=== PATIENT | male | born 1990 | race Caucasian/White ===

== ENCOUNTER 2016-12-21 10:44 | Emergency (ER) | payer SELFPAY ==
--- NOTE | 2016-12-21 11:19 | ER Document Report ---
ED Medical Screen (RME) - General Chief Complaint: Abscess Stated Complaint: PAIN/SWELLING OF LIP AND FACE Time seen by provider: 11:18 Mode of Arrival: Ambulatory Information source: Patient Notes: 26-year-old male with a abscess in the right upper lip that he squeezed pus out of 2 days ago. Has the swelling has increased since then. No fever. Pain goes up into his right cheek and into his mandible. The abscess and swelling seems to be localized. No history of MRSA TRAVEL OUTSIDE OF THE [place] IN LAST 30 DAYS: No - Related Data Allergies/Adverse Reactions: No Known Allergies Allergy (Verified 12/21/16 10:59) Past Medical History - Social History Chew tobacco use (# tins/day): Yes Frequency of alcohol use: Rare Drug Abuse: None Renal/ Medical History: Denies: Hx Peritoneal Dialysis
[2016-12-21] MEDS ORDERED: CLINDAMYCIN HCL 150 MG CAPSULE PO ONE (12:52)
[2016-12-21] MEDS ORDERED: HYDROCODONE/ACETAMINOPHEN 5-325 MG 6 TAB/DSPK PO PRN (12:54)
--- NOTE | 2016-12-21 12:58 | ER Document Report ---
ED Skin Rash/Insect Bite/Abscs - General Chief Complaint: Abscess Stated Complaint: PAIN/SWELLING OF LIP AND FACE Time seen by provider: 12:53 Mode of Arrival: Ambulatory Information source: Patient Notes: 26-year-old male presents to ED for abscess to the right upper lip states his head temples and it pops 2 days ago and yesterday the swelling was a little larger today is much larger. TRAVEL OUTSIDE OF THE [place] IN LAST 30 DAYS: No - HPI Patient complains to provider of: Skin rash/lesion, Tender/swollen area Onset: Other - 2 days Onset/Duration: Gradual Quality of pain: Sharp, Throbbing Severity: Moderate Pain Level: 4 Skin Character: Abscess Quality of rash: Painful Identify cause: Yes - states he popped the pimple and then it became large and inflamed on his li Exacerbated by: Denies - Palpation Relieved by: Denies Similar symptoms previously: No Recently seen / treated by doctor: No - Related Data Allergies/Adverse Reactions: No Known Allergies Allergy (Verified 12/21/16 10:59) Past Medical History - General Information source: Patient - Social History Smoking Status: Current Every Day Smoker Cigarette use (# per day): Yes - in cigarette a day Chew tobacco use (# tins/day): Yes Smoking Education Provided: Yes - less than 1 minute Frequency of alcohol use: Occasional Drug Abuse: None Occupation: goes to school Lives with: Parents Family History: Arthritis, CVA. denies: CAD, COPD, DM, Hyperlipidemia, Hypertension, Malignancy, Thyroid Disfunction Patient has suicidal ideation: No Patient has homicidal ideation: No - Past Medical History Cardiac Medical History: Reports: None Pulmonary Medical History: Reports: None EENT Medical History: Reports: None Neurological Medical History: Reports: None Endocrine Medical History: Reports: None Renal/ Medical History: Reports: None Malignancy Medical History: Reports None Musculoskeltal Medical History: Reports Hx Musculoskeletal Trauma - Shoulder rotator cuff injury, Reports Other Skin Medical History: Reports None Psychiatric Medical History: Reports: None Traumatic Medical History: Reports: None Infectious Medical History: Reports: None Past Surgical History: Reports: Hx Appendectomy, Hx Orthopedic Surgery - Rotator cuff - Immunizations History of Influenza Vaccine for 08/2016 - 01/2017 Season: No Review of Systems - Review of Systems Constitutional: No symptoms reported EENT: Other - Abscess to the right upper lip Cardiovascular: No symptoms reported Respiratory: No symptoms reported Gastrointestinal: No symptoms reported Genitourinary: No symptoms reported Male Genitourinary: No symptoms reported Musculoskeletal: No symptoms reported Skin: No symptoms reported Hematologic/Lymphatic: No symptoms reported Neurological/Psychological: No symptoms reported -: Yes All other systems reviewed and negative Physical Exam - Vital signs Vitals: Temp Pulse Resp BP Pulse Ox 99.7 F 85 18 148/93 H 100 12/21/16 10:58 12/21/16 10:58 12/21/16 10:58 12/21/16 10:58 12/21/16 10:58 Interpretation: Normal - General General appearance: Appears well, Alert - HEENT Head: Normocephalic, Atraumatic Eyes: Normal Pupils: PERRL Ears: Normal External canal: Normal Tympanic membrane: Normal Sinus: Normal Nasal: Normal Mouth/Lips: Other - Abscess to the right upper lip. Patient popped the pimple just above his lip Pharynx: Normal Neck: Normal - Respiratory Respiratory status: No respiratory distress Chest status: Nontender Breath sounds: Normal Chest palpation: Normal - Cardiovascular Rhythm: Regular Heart sounds: Normal auscultation Murmur: No - Abdominal Inspection: Normal Distension: No distension Bowel sounds: Normal Tenderness: Nontender Organomegaly: No organomegaly - Back Back: Normal, Nontender - Extremities General upper extremity: Normal inspection, Nontender, Normal color, Normal ROM , Normal temperature General lower extremity: Normal inspection, Nontender, Normal color, Normal ROM , Normal temperature, Normal weight bearing. No: Joel's sign - Neurological Neuro grossly intact: Yes Cognition: Normal Orientation: AAOx4 [place] Coma Scale Eye Opening: Spontaneous Adina Coma Scale Verbal: Oriented [place] Coma Scale Motor: Obeys Commands Adina Coma Scale Total: 15 Speech: Normal Motor strength normal: LUE, RUE, LLE, RLE Sensory: Normal - Psychological Associated symptoms: Normal affect, Normal mood - Skin Skin Temperature: Warm Skin Moisture: Dry Skin Color: Normal Course - Vital Signs Vital signs: Temp Pulse Resp BP Pulse Ox 99.7 F 87 18 156/92 H 98 12/21/16 10:58 12/21/16 13:21 12/21/16 13:21 12/21/16 13:21 12/21/16 13:21 Procedures - Incision and Drainage Right Upper lip Type: Simple Anesthetic type: 1% Lidocaine mL's of anesthetic: 3 Blade size: Other Incision Method: Incision made with needle Amount/type of drainage: no drainage patient started on antibiotics Discharge - Discharge Clinical Impression: abscess right upper lip Condition: Stable Disposition: HOME, SELF-CARE Instructions: Family Physicians / Practices Additional Instructions: ABSCESS: You have an abscess (boil). This a pus-forming infection, usually due to staph. Some boils may be left to drain on their own, but most require lancing. From the time the tender lump first appears, it may be three or four days before the abscess is ready to justin. Local heat and rest help at this stage of treatment. An antibiotic may prevent spread of the infection. Once the abscess is opened, packing may be placed into it. This is done so pus is not sealed inside by premature closure of the cavity. The packing will be removed at your follow-up visit or you may be advised to remove it yourself at home. Sometimes this packing must be replaced a few times during healing. The wound will heal with surprisingly little scar. Depending on the size and location of an abscess, healing can take one to four weeks. You may shower and wash the area around the incision site two or three times a day. Antibiotics may be prescribed, but are usually not necessary after an abscess has been drained. If you develop fever, chills, worsening pain, or increasing swelling in the area, call the doctor or return immediately. POST INCISION AND DRAINAGE: You have had an incision made to allow drainage of an abscess. The incision must remain open so that pus and debris can drain from the wound. If the abscess cavity is large, packing is placed. This keeps the tissues from collapsing and trapping pus inside, while the body shrinks the cavity. The packing may need to be replaced every day or two. The physician will instruct you on the packing. Keep a bulky dressing over the area. Replace it if it becomes saturated with blood or pus. Do not disturb the packing (if present). You may shower and cleanse the area with gentle soap and warm water two or three times a day. Local warmth may be soothing, and may promote faster healing. Return if you develop high fever or chills, or if you note spreading redness, increasing swelling, or increasing tenderness. ORAL NARCOTIC MEDICATION: You have been given a prescription for pain control. This medication is a narcotic. It's best taken with food, as nausea can result if taken on an empty stomach. Don't operate machinery or drive within six hours of taking this medication. Do not combine this medicine with alcohol, or with any medication which can cause sedation (such as cold tablets or sleeping pills) unless you get permission from the physician. Narcotics tend to cause constipation. If possible, drink plenty of fluids and eat a diet high in fiber and fruits. Clindamycin You have been given a prescription for the antibiotic clindamycin. It is often prescribed for infections in the mouth, such as dental infections or abscesses, and for skin infections due to MRSA. It's important that you take all the medication, unless instructed otherwise by your physician. Failure to complete the entire course can result in relapse of your condition. Common side effects of antibiotics include nausea, intestinal cramping, or diarrhea. Women may develop vaginal yeast infections, and babies can get yeast (thrush) in the mouth following the use of antibiotics. Contact your physician if you develop significant side effects from this medication. Allergy to this antibiotic can result in hives, wheezing, faintness, or itching. If symptoms of allergy occur, stop the medication and call the doctor. FOLLOW-UP CARE: Most simple abscesses will not require a follow up visit. If you had packing placed in the abscess, remove it as instructed by the physician. If you have been referred to a physician for follow-up care, call the physicians office for an appointment as you were instructed or within the next two days. If you experience worsening or a significant change in your symptoms, return to the Emergency Department at any time for re-evaluation. Prescriptions: Hydrocodone/Acetaminophen [Edwards 5-325 mg Tablet] 1 tab PO Q6HP PRN #10 tablet PRN Reason: Clindamycin HCl [Cleocin 300 mg Capsule] 300 mg PO Q6 #28 capsule Forms: Elevated Blood Pressure, Smoking Cessation Education, Return to Work
[2016-12-21 13:23] VITALS: BP 156/92
== END 2016-12-21 13:21 | disposition home or self-care (01) ==
LOC: ER 10:44
PROC: 0H91XZZ Drainage of Face Skin, External Approach (ICD-10-PCS; principal; 2016-12-21)
DX: K13.0 Diseases of lips (principal); F17.210 Nicotine dependence, cigarettes, uncomplicated
CPT/HCPCS: 99283

== ENCOUNTER 2019-05-13 11:51 | Observation (INO) | payer BC ==
[2019-05-13] MEDS ORDERED: CLINDAMYCIN 600 MG/D5W RTU 600 MG/50 ML RTUPB IV SCH (14:00)
--- NOTE | 2019-05-13 14:51 | RADIOLOGY REPORT (SQ) ---
EXAM DESCRIPTION: FOOT LEFT COMPLETE COMPLETED DATE/TIME: 05/13/2019 2:37 pm REASON FOR STUDY: pain, swelling, infection COMPARISON: None. NUMBER OF VIEWS: Three views. TECHNIQUE: AP, lateral and oblique radiographic images acquired of the left foot. LIMITATIONS: None. FINDINGS: MINERALIZATION: Normal. BONES: No acute fracture or dislocation. No worrisome bone lesions. JOINTS: No effusions. SOFT TISSUES: Diffuse soft tissue swelling of the forefoot. OTHER: No other significant finding. IMPRESSION: No fracture dislocation of the left foot. Joint spaces are well preserved. No radiogra phic evidence of erosion or sclerosis to suggest osteomyelitis. Diffuse soft tissue swelling of the forefoot. Consider MRI to more sensitively evaluate for marrow edema and osteomyelitis if suspected. TECHNICAL DOCUMENTATION: JOB ID: [id number] [employer]- All Rights Reserved Reading location - IP/workstation name: [email or web address]
[2019-05-13 15:07] LABS: ABSOLUTE MONOCYTES (AUTO) 1.3 10^3/uL (0.1-1.4); RED BLOOD COUNT 5.44 10^6/uL (4.35-5.55); SEGMENTED NEUTROPHILS % (AUTO) 69.4 % (42-78); TOTAL CELLS COUNTED % (AUTO) 100 %
[2019-05-13 15:16] LABS: ABSOLUTE EOSINOPHILS # (AUTO) 0.4 10^3/uL (0.0-0.6); ABSOLUTE LYMPHOCYTES (AUTO) 1.9 10^3/uL (0.5-4.7); ABSOLUTE NEUT (AUTO) 8.3 10^3/uL (1.7-8.2); BASOPHILS % (AUTO) 0.3 % (0-2); HEMATOCRIT 47.1 % (37.9-51.0); HEMOGLOBIN 16.1 g/dL (13.5-17.0); MEAN CORPUSCULAR HEMOGLOBIN 29.6 pg (27.0-33.4); MEAN CORPUSCULAR HGB CONC 34.1 g/dL (32.0-36.0); MEAN CORPUSCULAR VOLUME 87 fl (80-97); MONOCYTES % (AUTO) 11.3 % (3-13); PLATELET COUNT 293 10^3/uL (150-450); RED CELL DISTRIBUTION WIDTH 13.1 % (11.5-14.0); WHITE BLOOD COUNT 11.9 10^3/uL (4.0-10.5)
[2019-05-13 15:30] LABS: ALANINE AMINOTRANSFERASE 107 U/L (21-72); ALBUMIN 4.8 g/dL (3.5-5.0); ALKALINE PHOSPHATASE 65 U/L (38-126); ANION GAP 11 (5-19); ASPARTATE AMINO TRANSFERASE 59 U/L (17-59); BILIRUBIN,DIRECT 0.3 mg/dL (0.0-0.4); BILIRUBIN,TOTAL 1.9 mg/dL (0.2-1.3); BLOOD UREA NITROGEN 10 mg/dL (7-20); C-REACTIVE PROTEIN 38.8 mg/L (<10.0); CALCIUM 9.2 mg/dL (8.4-10.2); CARBON DIOXIDE 30 mmol/L (22-30); CHLORIDE 99 mmol/L (98-107); GLUCOSE 94 mg/dL (75-110); POTASSIUM 4.1 mmol/L (3.6-5.0); SODIUM 140.1 mmol/L (137-145)
[2019-05-13 15:51] LABS: ERYTHROCYTE SEDIMENTATION RATE 10 mm/hr (0-15)
--- NOTE | 2019-05-13 15:56 | ER Document Report ---
ED Medical Screen (RME) - General Chief Complaint: Leg Swelling Stated Complaint: POSSIBLE INSECT BITE Time Seen by Provider: 05/13/19 13:04 Mode of Arrival: Ambulatory Information source: Patient Notes: This is a 29-year-old male with no significant past medical history here for left foot and lower leg swelling x2 days. He states he got bit by some insects he is not sure what it may have been and the foot has swollen up dramatically over the last 2 days and he has had some redness, pain and very minimal itching. Is able to walk. Denies any numbness or tingling. He is PERC negative. He has not taken anything for his symptoms. No history of diabetes or asthma. No recent antibiotics or steroids. He has not put anything on the area. Up-to-date on vaccinations. Denies any drug use. No calf pain or swelling. No other lesions. He has had low-grade fevers. Some drainage. No other complaints at this time. TRAVEL OUTSIDE OF THE [place] IN LAST 30 DAYS: No - HPI Onset: Yesterday Onset/Duration: Gradual Quality of pain: Achy, Throbbing Severity: Mild - Related Data Allergies/Adverse Reactions: No Known Allergies Allergy (Verified 05/13/19 11:52) Past Medical History - Social History Frequency of alcohol use: twice monthly Drug Abuse: None Renal/ Medical History: Denies: Hx Peritoneal Dialysis Musculoskeltal Medical History: Reports Hx Musculoskeletal Trauma - Shoulder rotator cuff injury Past Surgical History: Reports: Hx Appendectomy, Hx Orthopedic Surgery - Rotator cuff Review of Systems - Review of Systems Constitutional: Chills, Fever Cardiovascular: Edema. denies: Chest pain, Palpitations, Dyspnea, Syncope, Dizziness Respiratory: denies: Cough, Hemoptysis, Short of breath Gastrointestinal: denies: Vomiting Musculoskeletal: Joint pain, Muscle pain, Deformity, Leg swelling, Ankle swelling Skin: Lesions, Rash Hematologic/Lymphatic: denies: Blood clots Neurological/Psychological: Gait changes. denies: Numbness, Tingling Physical Exam - Vital signs Vitals: Temp Pulse Resp BP Pulse Ox 99.3 F 97 20 126/84 H 98 05/13/19 12:08 05/13/19 12:08 05/13/19 12:08 05/13/19 12:08 05/13/19 12:08 - Notes Notes: >>>> PHYSICAL_EXAM: GENERAL_APPEARANCE: well_nourished, alert, cooperative, mild obvious discomfort. Pleasant young white male, smiling, easily sitting up, no sign of pain or respiratory distress, speaking in full sentences. VITALS: reviewed, see vital signs table. HEAD: normocephalic, atraumatic, no raccoon eyes, no fox signs EYES: EOMI, conjunctiva_clear. PERRL MOUTH: no_lacerations inside_mouth. NECK: no_swelling\tenderness on the neck. no midline bony tenderness. no step offs or deformities. full rom. full strength HEART: normal_rate, normal_rhythm, LUNGS: no_wheezing, CTAB, ABDOMEN: normal_BS, soft, no_abd_tenderness, BACK: no midline bony tenderness. no step offs or deformities EXTREMITIES: strength 5/5 in all_extremities, good pulses all_extremities, no_abrasions\lacerations in the extremities, no_swelling\tenderness in the extremities other than over the left foot where there is a 1-2+ pitting edema, the foot has a most edema and there is some edema extending up midshaft tibia. He has a negative Homans sign. There is some erythema on the medial aspect of posterior foot and a few 0.5 cm ulcerated appearing bug bites with some clear yellowish drainage the worst one being in anterior distal tibia. Area is tender to palpate. Does not appear he has compartment syndrome. No other swelling, redness, streaking, or tenderness to palpation of the leg. No other signs of trauma. No shortening or rotation of the limbs. No other rash.. full rom. Slight antalgic gait secondary to pain. SKIN: warm, dry, good_color. Rash is described NEURO: motor_intact, sensory_intact. GLASCOW_COMA_SCORE: (adult) - eyes_open_spontaneously_4, verbal_converses_and_oriented_5, motor_obeys_commands_6, glasgow_coma_total_15, MENTAL_STATUS: speech_clear, oriented_X_3, responds_appropriately to questions. Course - Re-evaluation Re-evalutation: 05/13/19 15:54 On reexam, pt improved with tx listed. feels much better and would like to go home. vss. well appearing. tolerating po. Patient initially evaluated me and signed out to ED attending, Dr. Urbano for final dispo and interpretation of labs and imaging. Please refer to his note for further details of the visit. Labs- Entire Visit 05/13/19 05/13/19 05/13/19 14:48 14:48 14:48 WBC 11.9 H RBC 5.44 Hgb 16.1 Hct 47.1 MCV 87 MCH 29.6 MCHC 34.1 RDW 13.1 Plt Count 293 Seg Neutrophils % 69.4 Lymphocytes % 16.0 Monocytes % 11.3 Eosinophils % 3.0 Basophils % 0.3 Absolute Neutrophils 8.3 H Absolute Lymphocytes 1.9 Absolute Monocytes 1.3 Absolute Eosinophils 0.4 Absolute Basophils 0.0 ESR 10 Sodium 140.1 Potassium 4.1 Chloride 99 Carbon Dioxide 30 Anion Gap 11 BUN 10 Creatinine 0.84 Est GFR ( Amer) > 60 Est GFR (Non-Af Amer) > 60 Glucose 94 Lactic Acid 0.9 Calcium 9.2 Total Bilirubin 1.9 H Direct Bilirubin 0.3 Neonat Total Bilirubin Not Reportable Neonat Direct Bilirubin Not Reportable Neonat Indirect Bili Not Reportable AST 59 ALT 107 H Alkaline Phosphatase 65 C-Reactive Protein 38.8 H Total Protein 8.0 Albumin 4.8 Foot X-Ray 05/13/19 13:44 IMPRESSION: No fracture dislocation of the left foot. Joint spaces are well preserved. No radiographic evidence of erosion or sclerosis to suggest osteomyelitis. Diffuse soft tissue swelling of the forefoot. Consider MRI to more sensitively evaluate for marrow edema and osteomyelitis if suspected. Category Date Time Status Saline Lock (ED) NOW Care 05/13/19 13:43 Active FOOT LEFT COMPLETE [RAD] Stat Exams 05/13/19 13:44 Completed BLOOD CULTURE [MC] Stat Lab 05/13/19 15:35 Received CBC WITH DIFF [HEME] Stat Lab 05/13/19 14:48 Completed CMP [COMPREHENSIVE METABOLIC PANEL] [CHEM] Stat Lab 05/13/19 14:48 Completed CRP [C-REACTIVE PROTEIN] [CHEM] Stat Lab 05/13/19 14:48 Completed LACTIC ACID SEPSIS [CHEM] Stat Lab 05/13/19 14:48 Completed Sed Rate [ERYTHROCYTE SEDIMENTATION RATE] [HEME] Stat Lab 05/13/19 14:48 Completed WOUND CULTURE + GRAM STAIN [MC] Stat Lab 05/13/19 13:44 Uncollected Clindamycin 600 mg/D5w RTU [Cleocin RTU 600 mg/D5w 50 Med 05/13/19 14:00 Active ml Premix] 600 mg in 50 ml IV Q8 ++I independently evaluated this patient along with Dr. Sanchez who also saw and evaluated this pt++Documentation achieved through voice recording which may despite best efforts include some typographical errors++ - Vital Signs Vital signs: Temp Pulse Resp BP Pulse Ox 99.3 F 97 20 126/84 H 98 05/13/19 12:08 05/13/19 12:08 05/13/19 12:08 05/13/19 12:08 05/13/19 12:08 - Laboratory Result Diagrams: 05/13/19 14:48 05/13/19 14:48 Laboratory results interpreted by me: 05/13/19 05/13/19 14:48 14:48 WBC 11.9 H Absolute Neutrophils 8.3 H Total Bilirubin 1.9 H ALT 107 H C-Reactive Protein 38.8 H - Diagnostic Test Radiology reviewed: Image reviewed, Reports reviewed Radiology results interpreted by me: 05/13/19 15:56 Foot X-Ray 05/13/19 13:44 IMPRESSION: No fracture dislocation of the left foot. Joint spaces are well preserved. No radiographic evidence of erosion or sclerosis to suggest osteomyelitis. Diffuse soft tissue swelling of the forefoot. Consider MRI to m ore sensitively evaluate for marrow edema and osteomyelitis if suspected. Doctor's Discharge - Discharge Clinical Impression: Edema of left foot Condition: Stable
--- NOTE | 2019-05-13 16:19 | ER Document Report ---
ED Extremity Problem, Lower - General Chief Complaint: Leg Swelling Stated Complaint: POSSIBLE INSECT BITE Time Seen by Provider: 05/13/19 13:04 Mode of Arrival: Ambulatory Information source: Patient, Relative TRAVEL OUTSIDE OF THE [place] IN LAST 30 DAYS: No - HPI Patient complains to provider of: Swelling Location: Foot - pt states he was bitten by several insects while in the yard 2- 3 days ago -- yesterday had some swelling of L foot and today swelling has progressed proximally with increased redness., Leg - Related Data Allergies/Adverse Reactions: No Known Allergies Allergy (Verified 05/13/19 11:52) Past Medical History - General Information source: Patient, Relative - Social History Smoking Status: Former Smoker Frequency of alcohol use: twice monthly Drug Abuse: None Family History: Arthritis, CVA. denies: CAD, COPD, DM, Hyperlipidemia, Hypertension, Malignancy, Thyroid Disfunction Patient has suicidal ideation: No Patient has homicidal ideation: No Renal/ Medical History: Denies: Hx Peritoneal Dialysis Musculoskeletal Medical History: Reports Hx Musculoskeletal Trauma - Shoulder rotator cuff injury Past Surgical History: Reports: Hx Appendectomy, Hx Orthopedic Surgery - Rotator cuff Review of Systems - Review of Systems Constitutional: No symptoms reported EENT: No symptoms reported Cardiovascular: No symptoms reported Respiratory: No symptoms reported Gastrointestinal: No symptoms reported Musculoskeletal: See HPI, Joint pain, Leg swelling, Ankle swelling Skin: See HPI Neurological/Psychological: No symptoms reported -: Yes All other systems reviewed and negative Physical Exam - Vital signs Vitals: Temp Pulse Resp BP Pulse Ox 99.3 F 97 20 126/84 H 98 05/13/19 12:08 05/13/19 12:08 05/13/19 12:08 05/13/19 12:08 05/13/19 12:08 - General General appearance: Appears well In distress: None - HEENT Mucous membranes: Normal Pharynx: Normal Neck: Normal - Respiratory Respiratory status: No respiratory distress Breath sounds: Normal - Cardiovascular Rhythm: Regular Heart sounds: Normal auscultation Murmur: No - Back Back: Normal - Extremities General upper extremity: Normal inspection General lower extremity: Tender - there is TTP of the L foot and lower extremity with moderate STS. there are scattered excoriations consistent with insect bites on the dorsum of the foot. There is diffuse erythema of foot and distal lower extremity. There is FROM of leg and it is N/V intact Course - Re-evaluation Re-evalutation: 05/13/19 16:19 I have re-evaluated this pt. and feel the safest way to proceed is to admit him for IV abx and obs. I will call hospitalist for admission - Vital Signs Vital signs: Temp Pulse Resp BP Pulse Ox 99.3 F 97 20 126/84 H 98 05/13/19 12:08 05/13/19 12:08 05/13/19 12:08 05/13/19 12:08 05/13/19 12:08 - Laboratory Result Diagrams: 05/13/19 14:48 05/13/19 14:48 Laboratory results interpreted by me: 05/13/19 05/13/19 14:48 14:48 WBC 11.9 H Absolute Neutrophils 8.3 H Total Bilirubin 1.9 H ALT 107 H C-Reactive Protein 38.8 H - Diagnostic Test Radiology reviewed: Reports reviewed - no evidence of osteo Critical Care Note - Critical Care Note Total time excluding time spent on procedures (mins): 30 Discharge - Discharge Clinical Impression: Edema of left foot Condition: Stable Disposition: ADMITTED OBSERVATION Admitting Provider: Amina (Hospitalist) Unit Admitted: Medical Floor
[2019-05-13] MEDS ORDERED: ACETAMINOPHEN 325 MG TABLET PO PRN (17:08)
[2019-05-13] MEDS ORDERED: VANCOMYCIN HCL 0 MG in DEXTROSE 5%-WATER 250 ML IV NR (17:15)
--- NOTE | 2019-05-13 17:16 | PDOC H&P ---
History of Present Illness Admission Date/PCP: 05/13/19 16:48 Patient complains of: left foot/leg pain History of Present Illness: RIGOBERTO BISHOP is a 29 year old male with no significant PMH who presented with left foot and leg pain and swelling. Patient says that he was working on the backyard 2 days ago and was bitten by insects. He said he was scratching his left foot a lot because of the pruritus and had some superficial wounds from the scratching. He later developed redness on the left foot and later progressed to his left leg. He complained of some chills at home but denies fever. On encounter, there is left foot erythema and swelling with the erythema and swelling extending up to the left leg. Past Surgical History Past Surgical History: Reports: Appendectomy, Orthopedic Surgery - Rotator cuff Social History Smoking Status: Former Smoker Family History Family History: Arthritis, CVA. denies: CAD, COPD, DM, Hyperlipidemia, Hypertension, Malignancy, Thyroid Disfunction Parental Family History Reviewed: Yes - no premature CAD Children Family History Reviewed: No Sibling(s) Family History Reviewed.: No Medication/Allergy Home Medications: Dextroamphetamine/Amphetamine [Adderall XR 20 mg Capsule] 20 mg PO DAILY 05/13/19 Clindamycin HCl [Cleocin 300 mg Capsule] 300 mg PO Q6H 5 Days #20 capsule Allergies/Adverse Reactions: No Known Allergies Allergy (Verified 05/13/19 11:52) Review of Systems All systems: reviewed and no additional remarkable complaints except as stated - as mentioned in HPI Physical Exam Vital Signs: Temp Pulse Resp BP Pulse Ox 99.3 F 97 20 126/84 H 98 05/13/19 12:08 05/13/19 12:08 05/13/19 12:08 05/13/19 12:08 05/13/19 12:08 Intake & Output 05/12/19 05/13/19 05/14/19 06:59 06:59 06:59 Weight 214 lb 15.211 oz General appearance: PRESENT: no acute distress, well-developed, well-nourished Head exam: PRESENT: atraumatic, normocephalic Eye exam: PRESENT: conjunctiva pink, EOMI, PERRLA. ABSENT: scleral icterus Ear exam: PRESENT: normal external ear exam Mouth exam: PRESENT: moist, tongue midline Neck exam: ABSENT: carotid bruit, JVD, lymphadenopathy, thyromegaly Respiratory exam: PRESENT: clear to auscultation [place]aka. ABSENT: rales, rhonchi, wheezes Cardiovascular exam: PRESENT: RRR. ABSENT: diastolic murmur, rubs, systolic murmur Pulses: PRESENT: normal dorsalis pedis pul GI/Abdominal exam: PRESENT: normal bowel sounds, soft. ABSENT: distended, guarding, mass, organolmegaly, rebound, tenderness Rectal exam: PRESENT: deferred Extremities exam: PRESENT: tenderness - note of erythema and tenderness on the left foot extending up to the left leg Neurological exam: PRESENT: alert, awake, oriented to person, oriented to place, oriented to time, oriented to situation, CN II-XII grossly intact. ABSENT: motor sensory deficit Results Laboratory Results: 05/13/19 14:48 05/13/19 14:48 05/13/19 05/13/19 05/13/19 14:48 14:48 14:48 WBC 11.9 H RBC 5.44 Hgb 16.1 Hct 47.1 MCV 87 MCH 29.6 MCHC 34.1 RDW 13.1 Plt Count 293 Seg Neutrophils % 69.4 Lymphocytes % 16.0 Monocytes % 11.3 Eosinophils % 3.0 Basophils % 0.3 Absolute Neutrophils 8.3 H Absolute Lymphocytes 1.9 Absolute Monocytes 1.3 Absolute Eosinophils 0.4 Absolute Basophils 0.0 Sodium 140.1 Potassium 4.1 Chloride 99 Carbon Dioxide 30 Anion Gap 11 BUN 10 Creatinine 0.84 Est GFR ( Amer) > 60 Est GFR (Non-Af Amer) > 60 Glucose 94 Lactic Acid 0.9 Calcium 9.2 Total Bilirubin 1.9 H AST 59 ALT 107 H Alkaline Phosphatase 65 C-Reactive Protein 38.8 H Total Protein 8.0 Albumin 4.8 Impressions: Foot X-Ray 05/13/19 13:44 IMPRESSION: No fracture dislocation of the left foot. Joint spaces are well preserved. No radiographic evidence of erosion or sclerosis to suggest osteomyelitis. Diffuse soft tissue swelling of the forefoot. Consider MRI to more sensitively evaluate for marrow edema and osteomyelitis if suspected. Assessment and Plan - Diagnosis (1) Cellulitis of left lower extremity Is this a current diagnosis for this admission?: Yes Plan: Start IV clindamycin. Blood cultures sent. - Time Time Spent with patient: 15-24 minutes
[2019-05-13] MEDS ORDERED: VANCOMYCIN HCL 1,500 MG in DEXTROSE 5%-WATER 250 ML IV SCH (18:30)
[2019-05-13] MEDS ORDERED: METHYLPREDNISOLONE INJ 125 MG/2 ML SDV IV ONE (19:15)
[2019-05-13] MEDS ORDERED: DIPHENHYDRAMINE HCL 50 MG/ML VIAL IV ONE (19:15)
[2019-05-13] MEDS: CLINDAMYCIN 600 MG/D5W RTU 600 MG/50 ML RTUPB IV SCH (22:35)
[2019-05-13] MEDS: HEPARIN SOD (PORCINE) 5,000 UNIT/ML 1 ML SYRINGE SUBCUT SCH (22:37)
[2019-05-14] MEDS: CLINDAMYCIN 600 MG/D5W RTU 600 MG/50 ML RTUPB IV SCH ×3 (06:58→21:57)
[2019-05-14] MEDS: HEPARIN SOD (PORCINE) 5,000 UNIT/ML 1 ML SYRINGE SUBCUT SCH ×2 (09:12→21:57)
--- NOTE | 2019-05-14 13:45 | PDOC PROGRESS REPORT ---
Subjective Progress Note for:: 05/14/19 Subjective:: This is a 29 year old male with no significant PMH who presented with left foot and leg pain and swelling. He was admitted for left foot and leg cellulitis. He was started on vancomycin and clindamycin yesterday. During Vanco administration, patient developed severe flushing. Vancomycin was discontinued and he was given Benadryl and Solu-Medrol. No chest pain or shortness of breath during the episode. Blood pressure remained stable. No hypoxia. This morning, there is improvement in the erythema and swelling of the left foot and left leg. Anticipating discharge in the next 24 hours if left leg continue to improve with IV antibiotics. Reason For Visit: LEFT LEG CELLULITIS Physical Exam Vital Signs: Temp Pulse Resp BP Pulse Ox 97.7 F 63 17 115/62 96 05/14/19 07:28 05/14/19 07:28 05/14/19 07:28 05/14/19 07:28 05/14/19 07:28 Intake & Output 05/13/19 05/14/19 05/15/19 06:59 06:59 06:59 Intake Total 194 50 Balance 194 50 Weight 224 lb 6.889 oz General appearance: PRESENT: no acute distress, well-developed, well-nourished Head exam: PRESENT: atraumatic, normocephalic Eye exam: PRESENT: conjunctiva pink, EOMI, PERRLA. ABSENT: scleral icterus Ear exam: PRESENT: normal external ear exam Mouth exam: PRESENT: moist, tongue midline Neck exam: ABSENT: carotid bruit, JVD, lymphadenopathy, thyromegaly Respiratory exam: PRESENT: clear to auscultation shaka. ABSENT: rales, rhonchi, wheezes Cardiovascular exam: PRESENT: RRR. ABSENT: diastolic murmur, rubs, systolic murmur Pulses: PRESENT: normal dorsalis pedis pul Vascular exam: PRESENT: normal capillary refill GI/Abdominal exam: PRESENT: normal bowel sounds, soft. ABSENT: distended, gu arding, mass, organolmegaly, rebound, tenderness Rectal exam: PRESENT: deferred Musculoskeletal exam: PRESENT: other - Improvement in the erythema, swelling tenderness of the left lower extremity Neurological exam: PRESENT: alert, awake, oriented to person, oriented to place, oriented to time, oriented to situation, CN II-XII grossly intact. ABSENT: motor sensory deficit Results Laboratory Results: 05/13/19 14:48 05/13/19 14:48 05/13/19 05/13/19 05/13/19 14:48 14:48 14:48 WBC 11.9 H RBC 5.44 Hgb 16.1 Hct 47.1 MCV 87 MCH 29.6 MCHC 34.1 RDW 13.1 Plt Count 293 Seg Neutrophils % 69.4 Lymphocytes % 16.0 Monocytes % 11.3 Eosinophils % 3.0 Basophils % 0.3 Absolute Neutrophils 8.3 H Absolute Lymphocytes 1.9 Absolute Monocytes 1.3 Absolute Eosinophils 0.4 Absolute Basophils 0.0 Sodium 140.1 Potassium 4.1 Chloride 99 Carbon Dioxide 30 Anion Gap 11 BUN 10 Creatinine 0.84 Est GFR ( Amer) > 60 Est GFR (Non-Af Amer) > 60 Glucose 94 Lactic Acid 0.9 Calcium 9.2 Total Bilirubin 1.9 H AST 59 ALT 107 H Alkaline Phosphatase 65 C-Reactive Protein 38.8 H Total Protein 8.0 Albumin 4.8 Impressions: Foot X-Ray 05/13/19 13:44 IMPRESSION: No fracture dislocation of the left foot. Joint spaces are well preserved. No radiographic evidence of erosion or sclerosis to suggest osteomyelitis. Diffuse soft tissue swelling of the forefoot. Consider MRI to more sensitively evaluate for marrow edema and osteomyelitis if suspected. Assessment and Plan - Diagnosis (1) Cellulitis of left lower extremity Is this a current diagnosis for this admission?: Yes Plan: 05/13: Start IV clindamycin and vancomycin. Blood cultures sent. 05/14: Improving. Vancomycin discontinued as mentioned above. Continue clindamycin. Likely discharge tomorrow on PO clindamycin if he continues to improve.
[2019-05-14 18:03] LABS: VANCOMYCIN,TROUGH < 5.0 ug/mL (5.0-20.0)
[2019-05-15] MEDS: CLINDAMYCIN 600 MG/D5W RTU 600 MG/50 ML RTUPB IV SCH (05:21)
[2019-05-15] MEDS: HEPARIN SOD (PORCINE) 5,000 UNIT/ML 1 ML SYRINGE SUBCUT SCH (10:10)
[2019-05-15 10:13] VITALS: BP 130/64
--- NOTE | 2019-05-15 18:15 | PDOC DISCHARGE SUMMARY ---
General - Admit/Disc Date/PCP Admission Date/Primary Care Provider: 05/13/19 16:48 Discharge Date: 05/15/19 - Discharge Diagnosis (1) Cellulitis of left lower extremity Is this a current diagnosis for this admission?: Yes - Additional Information Resuscitation Status: Full Code Discharge Diet: As Tolerated, Regular Discharge Activity: Activity As Tolerated Prescriptions: Clindamycin HCl [Cleocin 300 mg Capsule] 300 mg PO Q6H 5 Days #20 capsule Home Medications: Dextroamphetamine/Amphetamine [Adderall XR 20 mg Capsule] 20 mg PO DAILY 05/13/19 Clindamycin HCl [Cleocin 300 mg Capsule] 300 mg PO Q6H 5 Days #20 capsule 05/15/19 History of Present Illness History of Present Illness: RIGOBERTO BISHOP is a 29 year old male with no significant PMH who presented with left foot and leg pain and swelling. Patient says that he was working on the backyard 2 days ago and was bitten by insects. He said he was scratching his le ft foot a lot because of the pruritus and had some superficial wounds from the scratching. He later developed redness on the left foot and later progressed to his left leg. He complained of some chills at home but denies fever. On encounter, there is left foot erythema and swelling with the erythema and swelling extending up to the left leg. Hospital Course Hospital Course: This is a 29 year old male with no significant PMH aside from ADHD who presented with left foot and leg pain and swelling. He was admitted for left foot and leg cellulitis. He was started on vancomycin and clindamycin yesterday. During Vanco administration, patient developed flushing. No chest pain or shortness of breath during the episode. Blood pressure remained stable. No hypoxia. Vancomycin was discontinued and he was continued on clindamycin. He had significant improvement with clindamycin. On day of discharge, there is very minimal erythema on the left leg, almost resolved. Erythema and tenderness on the left foot have resolved. He will be discharged on PO clindamycin. Physical Exam Vital Signs: Temp Pulse Resp BP Pulse Ox 97.7 F 70 16 130/64 H 97 05/15/19 10:12 05/15/19 10:12 05/15/19 10:12 05/15/19 10:12 05/15/19 10:12 Intake & Output 05/14/19 05/15/19 05/16/19 06:59 06:59 06:59 Intake Total 194 1030 50 Balance 194 1030 50 Weight 224 lb 6.889 oz General appearance: PRESENT: no acute distress, well-developed, well-nourished Head exam: PRESENT: atraumatic, normocephalic Eye exam: PRESENT: conjunctiva pink, EOMI, PERRLA. ABSENT: scleral icterus Ear exam: PRESENT: normal external ear exam Mouth exam: PRESENT: moist, tongue midline Neck exam: ABSENT: carotid bruit, JVD, lymphadenopathy, thyromegaly Respiratory exam: PRESENT: clear to auscultation [place]aka. ABSENT: rales, rhonchi, wheezes Cardiovascular exam: PRESENT: RRR. ABSENT: diastolic murmur, rubs, systolic murmur Pulses: PRESENT: normal dorsalis pedis pul GI/Abdominal exam: PRESENT: normal bowel sounds, soft. ABSENT: distended, guarding, mass, organolmegaly, rebound, tenderness Rectal exam: PRESENT: deferred Extremities exam: PRESENT: other - very minimal erythema on the left leg, almost resolved Neurological exam: PRESENT: alert, awake, oriented to person, oriented to place, oriented to time, oriented to situation, CN II-XII grossly intact. ABSENT: motor sensory deficit Results Laboratory Results: 05/13/19 14:48 05/14/19 17:32 Impressions: Foot X-Ray 05/13/19 13:44 IMPRESSION: No fracture dislocation of the left foot. Joint spaces are well preserved. No radiographic evidence of erosion or sclerosis to suggest osteomyelitis. Diffuse soft tissue swelling of the forefoot. Consider MRI to more sensitively evaluate for marrow edema and osteomyelitis if suspected. Qualifiers - * PATIENT BEING DISCHARGED WITH ANY OF THE FOLLOWING DIAGNOSIS: No Acute Heart Failure - Is this a Heart Failure Patient?: No
== END 2019-05-15 11:38 | disposition home or self-care (01) ==
LOC: ER 11:51 → EH 16:48 → 4S 20:00
PROVIDERS: ADMIT Internal Medicine; ATTEND Internal Medicine
DX: L03.116 Cellulitis of left lower limb (principal); S90.862A Insect bite (nonvenomous), left foot, initial encounter; W57.XXXA Bitten or stung by nonvenomous insect and other nonvenomous arthropods, initial encounter; Y93.H9 Activity, other involving exterior property and land maintenance, building and construction; Y92.007 Garden or yard of unspecified non-institutional (private) residence as the place of occurrence of the external cause; Z79.899 Other long term (current) drug therapy; R23.2 Flushing; T36.8X5A Adverse effect of other systemic antibiotics, initial encounter; Y92.239 Unspecified place in hospital as the place of occurrence of the external cause; R68.83 Chills (without fever); F90.9 Attention-deficit hyperactivity disorder, unspecified type; Z87.891 Personal history of nicotine dependence; Z90.49 Acquired absence of other specified parts of digestive tract
CPT/HCPCS: 99291; 96375; 96365; 96366; 96367; 36415 ×2; 87040; 82565; 85025; 85652; 86140; 80053; 80202; 83605; 73630; G0378 ×4; J1644 ×2; J1200; J2930; J7060; J3370